=== PATIENT | male | born 1980 | race Caucasian/White ===

== ENCOUNTER 2021-12-02 14:53 | Emergency (ER) | payer MEDICAID ==
[~2021-12-02] VITALS: Ht 167.6 cm; Wt 90.7 kg
[2021-12-02 15:16] VITALS: BP 120/79
[2021-12-02] MEDS ORDERED: predniSONE 50 MG TABLET PO ONE (16:00)
[2021-12-02] MEDS ORDERED: GUAIFENESIN/D-METHORPHAN HB 5 ML UDC PO ONE (16:00)
[2021-12-02] MEDS ORDERED: predniSONE 20 MG TABLET ONE (16:11)
[2021-12-02] MEDS ORDERED: GUAIFENESIN/D-METHORPHAN HB 5 ML UDC ONE (16:11)
--- NOTE | 2021-12-02 16:14 | NUR ---
COVID [facility] SENT
[2021-12-02] MEDS ORDERED: GUAI1TBM19 PO (17:29)
[2021-12-02] MEDS ORDERED: PSEU120T83 PO (17:29)
[2021-12-02] MEDS ORDERED: PRED50TA PO (17:29)
== END 2021-12-02 18:37 | disposition home or self-care (01) ==
LOC: ER 14:58
DX: H69.81 Other specified disorders of Eustachian tube, right ear (principal); G44.89 Other headache syndrome; B34.9 Viral infection, unspecified; Z20.822 Contact with and (suspected) exposure to COVID-19
CPT/HCPCS: 71045; 87426; 99284; C9803; J7512